=== PATIENT | male | born 1945 | race Caucasian/White ===

== ENCOUNTER 2018-12-11 13:28 | Emergency (ER) | payer MEDICARE, BC ==
--- NOTE | 2018-12-11 13:44 | UC ---
Lower Extremity/Ankle HPI - HPI Summary HPI Summary: 73 yo male presents with LEFT ankle injury. He tells me that about 5 days ago he was walking his dog and the leash wrapped around his ankle and pt fell. Since that time has been having left ankle pain and swelling. Has been using crutches and using RICE therapy for the last 5 days with little relief. Denies numbness or tingling. - History of Current Complaint Stated Complaint: ANKLE INJURY Time Seen by Provider: 12/11/18 13:33 Hx Obtained From: Patient Onset/Duration: Sudden Onset Severity Initially: Moderate Severity Currently: Moderate Pain Intensity: 6 Pain Scale Used: 0-10 Numeric Aggravating Factor(s): Standing, Ambulation Alleviating Factor(s): Rest, Elevation Able to Bear Weight: Yes - Allergies/Home Medications Allergies/Adverse Reactions: Allergies Allergy/AdvReac Type Severity Reaction Status Date / Time azathioprine Allergy Unknown Verified 12/11/18 13:47 Reaction Details citalopram [From Celexa] Allergy Unknown Verified 12/11/18 13:47 Reaction Details methotrexate Allergy Rash Verified 12/11/18 13:47 PMH/Surg Hx/FS Hx/Imm Hx - Additional Past Medical History Additional PMH: Chronic pain Endocrine History: Dyslipidemia Cardiovascular History: Cardiac Disease, Hypertension Respiratory History: COPD, Asthma Psychological History: Anxiety, Depression - Surgical History Surgical History: Yes Surgery Procedure, Year, and Place: TRIPLE BYPASS WITH CHEST WIRES-PRAFUL - Family History Known Family History: Positive: Cardiac Disease, Hypertension, Respiratory Disease - Social History Lives: With Family Alcohol Use: Rare Alcohol Amount: "glass of wine sometimes" Substance Use Type: None Smoking Status (MU): Former Smoker When Did the Patient Quit Smoking/Using Tobacco: 1998 - Immunization History Most Recent Influenza Vaccination: 2014 Most Recent Tetanus Shot: unknown Most Recent Pneumonia Vaccination: unknown Review of Systems All Other Systems Reviewed And Are Negative: Yes Constitutional: Positive: Negative Skin: Positive: Negative Respiratory: Positive: Negative Cardiovascular: Positive: Negative Neurovascular: Positive: Negative Musculoskeletal: Positive: Other: - LEFT ankle pain Psychological: Positive: Negative Physical Exam - Summary Physical Exam Summary: GENERAL: NAD. WDWN. No pain distress. SKIN: No rashes, sores, lesions, or open wounds. CHEST: No accessory muscle use. Breathing comfortably and in no distress. CV: Pulses intact PT and DP. Cap refill <2seconds MSK: LEFT ANKLE: Moderate edema at ankle joint. Mild TTP at medial and lateral malleolus. FROM with pain during inversion at medial malleolus. Strength 5/5. Negative talar tilt. No increased laxity. Negative [place] test. NEURO: Alert. Sensations intact and symmetric B/L LEs PSYCH: Age appropriate behavior. Triage Information Reviewed: Yes Vital Signs: Vital Signs: Temp Pulse Resp BP Pulse Ox 97.2 F 97 20 145/91 96 12/11/18 13:54 12/11/18 13:54 12/11/18 13:54 12/11/18 13:54 12/11/18 13:54 Vital Signs Reviewed: Yes Lower Extremity Course/Dx - Course Course Of Treatment: XR: IMPRESSION: SOFT TISSUE SWELLING AND SMALL AVULSION FRACTURE FRAGMENT ARISING FROM THE MEDIAL TALUS. Pt placed in a CAM boot and advised to wear as much as possible and continue using crutches and utilizing RICE therapy for comfort. F/u with Ortho within 1 week. - Differential Dx/Diagnosis Provider Diagnosis: Avulsion fracture of ankle Discharge - Sign-Out/Discharge Documenting (check all that apply): Patient Departure All imaging exams completed and their final reports reviewed: Yes - Discharge Plan Condition: Stable Disposition: HOME Patient Education Materials: Avulsion Fracture (ED) Referrals: Ania Piña MD [Primary Care Provider] - Benito Ross MD [Medical Doctor] - As Soon As Possible Additional Instructions: If you develop a fever, shortness of breath, chest pain, new or worsening symptoms - please call your PCP or go to the ED immediately. Your blood pressure was high at todays visit. Please see your primary provider within 4 weeks for recheck and re-evaluation. 1) Rest, Ice, and elevate your ankle intermittently throughout the day to reduce pain 2) Use the crutches as needed for support and pain relief. Use the walking boot as much as possible. 3) Please call Orthopedics at the number below to schedule a follow up appointment within 1 week for further evaluation of your ankle. - Billing Disposition and Condition Condition: STABLE Disposition: Home
[2018-12-11 14:03] VITALS: BP 145/91
== END 2018-12-11 14:25 | disposition home or self-care (01) ==
LOC: UCEAST 13:28
DX: S92.155A Nondisplaced avulsion fracture (chip fracture) of left talus, initial encounter for closed fracture (principal); W18.30XA Fall on same level, unspecified, initial encounter; Y93.K1 Activity, walking an animal; Y92.9 Unspecified place or not applicable; G89.29 Other chronic pain; E78.5 Hyperlipidemia, unspecified; I11.9 Hypertensive heart disease without heart failure; J44.9 Chronic obstructive pulmonary disease, unspecified; F41.9 Anxiety disorder, unspecified; F32.9 Major depressive disorder, single episode, unspecified; Z95.1 Presence of aortocoronary bypass graft; Z88.8 Allergy status to other drugs, medicaments and biological substances; Z87.891 Personal history of nicotine dependence
CPT/HCPCS: 99212; G0463

== ENCOUNTER 2019-04-13 10:30 | Emergency (ER) | payer MEDICARE, BC ==
--- NOTE | 2019-04-13 13:38 | ED ---
Back Pain - HPI Summary HPI Summary: The patient is a 73 y/o M presenting to [facility] with a chief complaint of worsening low back pain beginning after lying on side during a colonoscopy 3 weeks ago. He reports that he's had chronic back pain for 30 years with intermittent episodes of severe pain. However, he had a colonoscopy a few weeks ago where he had to lay on his side, and when he woke up, he had severe low back pain without pain before the procedure. He is now c/o difficulty ambulating secondary to the pain. He has spoke with Dr. Piña, his PCP, over the last few days concerning the pain. No new urinary retention, constipation, or bladder or bowel incontinence. Pain is currently rated 7/10 in severity. 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 Former smoker, rare EtOH, no substance use. Medications reviewed. Allergies noted. - History of Current Complaint Chief Complaint: EDBackInjuryPain Stated Complaint: BACK PAIN PER PT Time Seen by Provider: 04/13/19 13:22 Hx Obtained From: Patient Onset/Duration: Lasting Days, Still Present Onset/Duration: Still Present Back Pain Location: Is Discrete @ - low back Severity Initially: Mild Severity Currently: Moderate Pain Intensity: 7 Pain Scale Used: 0-10 Numeric Character: Sharp Aggravating Symptom(s): Movement, Walking Alleviating Symptom(s): Nothing Associated Signs And Symptoms: Positive: Other - Positive: difficulty ambulating secondary to pain. Negative: urinary retention, constipation.. Negative: Bladder Incontinence, Bowel Incontinence - Allergies/Home Medications Allergies/Adverse Reactions: Allergies Allergy/AdvReac Type Severity Reaction Status Date / Time azathioprine Allergy Unknown Verified 03/28/19 14:39 Reaction Details citalopram [From Celexa] Allergy Unknown Verified 03/28/19 14:39 Reaction Details methotrexate Allergy Rash Verified 03/28/19 14:39 LAURE Inhibitors AdvReac Coughing Verified 03/28/19 14:39 celecoxib [From Celebrex] AdvReac GI Upset Verified 03/28/19 14:39 PMH/Surg Hx/FS Hx/Imm Hx Endocrine/Hematology History: Reports: Hx Diabetes - borderline Cardiovascular History: Reports: Hx Angina, Hx Coronary Artery Disease - 3 VESSEL BYPASS HAD TO RETURN TO OR, Hx Hypercholesterolemia, Hx Hypertension, Hx Myocardial Infarction, Hx Rheumatic Fever - A CHILD, Other Cardiovascular Problems/Disorders - HEART STOPPED DURING SURGERY AND HAD CARDIAC MUSCLE LOSS Denies: Hx Pacemaker/ICD Respiratory History: Reports: Hx Sleep Apnea - USES BI PAP Denies: Hx Asthma, Hx Chronic Obstructive Pulmonary Disease (COPD) GI History: Reports: Other GI Disorders - PUS AN AND COPIUS BLOOD FROM RECTUM R/ T ANAL FISSURE Musculoskeletal History: Reports: Hx Arthritis - osteo and rheumatoid, Hx Back Problems, Hx Orthopedic Injury - to lumbar spine in youth, Other Musculoskeletal History - cervical spondylosis, spinal stenosis Sensory History: Reports: Hx Contacts or Glasses Denies: Hx Hearing Aid Opthamlomology History: Reports: Hx Contacts or Glasses Neurological History: Reports: Hx Nerve Disease - NEUROPATHY, Other Neuro Impairments/Disorders - FOOT DROP PT. STATES HE FALLS FREQUENTLY Psychiatric History: Reports: Hx Anxiety, Hx Depression Denies: Hx Panic Disorder - Surgical History Surgical History: Yes Surgery Procedure, Year, and Place: TRIPLE BYPASS WITH CHEST WIRES-PRAFUL Hx Anesthesia Reactions: No Infectious Disease History: No Infectious Disease History: Denies: Traveled Outside the [place] in Last 30 Days - Family History Known Family History: Positive: Cardiac Disease, Hypertension, Respiratory Disease - Social History Alcohol Use: Rare Alcohol Amount: "glass of wine sometimes" Hx Substance Use: No Substance Use Type: Reports: None Hx Tobacco Use: No Smoking Status (MU): Former Smoker Review of Systems Positive: Other - Negative: incontinence of stool Negative: incontinence Positive: Other - severe low back pain worst on right Neurological: Other - difficulty ambulating secondary to pain Negative: Numbness - between penis and buttock All Other Systems Reviewed And Are Negative: Yes Physical Exam - Summary Physical Exam Summary: Constitutional: Well-developed, Well-nourished, Alert. (-) Distressed Skin: Warm, Dry HENT: Normocephalic; Atraumatic Eyes: Conjunctiva normal Neck: Musculoskeletal ROM normal neck. (-) JVD, (-) Stridor, (-) Tracheal deviation Cardio: Rhythm regular, rate normal, Heart sounds normal; Intact distal pulses; The pedal pulses are 2+ and symmetric. Radial pulses are 2+ and symmetric. (-) Murmur Pulmonary/Chest wall: Effort normal. (-) Respiratory distress, (-) Wheezes, (-) Rales Abd: Soft. (-) Tenderness, (-) Distension, (-) Guarding, (-) Rebound Musculoskeletal: Right lateral lumbar tenderness, able to sit up, able to raise legs with some weakness in the right leg, (-) Edema Lymph: (-) Cervical adenopathy Neuro: Alert, Oriented x3 Psych: Mood and affect Normal Triage Information Reviewed: Yes Vital Signs On Initial Exam: Initial Vitals Temp Pulse Resp BP Pulse Ox 97.8 F 75 18 127/82 95 04/13/19 10:33 04/13/19 10:33 04/13/19 10:33 04/13/19 10:33 04/13/19 10:33 Vital Signs Reviewed: Yes Diagnostics - Vital Signs Vital Signs Temp Pulse Resp BP Pulse Ox 04/13/19 10:33 97.8 F 75 18 127/82 95 - Laboratory Lab Statement: Any lab studies that have been ordered have been reviewed, and results considered in the medical decision making process. - Radiology Lumbar Spine MRI Radiology Interpretation Completed By: Radiologist Summary of Radiographic Findings: 1. Similar varying degrees of multilevel spondylosis which results in up to moderate spinal canal stenosis at L2-L3. There is mild to moderate multilevel neural foraminal stenosis as above. 2. Multilevel disc protrusions and extrusions (most of which have partially resorbed). The left paracentral disc extrusion at L5-S1 contacts the descending left S1 nerve root. 3. Modic type I degenerative endplate changes at L2-L3 are potential source of focal back pain. ED physician has reviewed this radiology report. Re-Evaluation - Re-Evaluation First Eval Re-Evaluation Time: 15:20 Comment: We discussed Dr. Piña's recommendation for MRI. Second Eval Re-Evaluation Time: 16:54 Comment: We discussed MRI results and plan for discharge. Back Pain Course/Dx - Course Course Of Treatment: Patient is here with lower back pain. Patient's had chronic lower back pain for the past 30 years. Patient's back pain became exacerbated by his colonoscopy. He was given a dose of IV morphine and steroids. Patient had an MRI performed which showed no change from baseline. Patient was offered admission for pain control but declined. - Diagnoses Provider Diagnoses: Chronic low back pain - Provider Notifications Discussed Care Of Patient With: Ania Piña - family medicine Time Discussed With Above Provider: 15:15 Instructed by Provider To: Other - Dr. Piña recommends MRI secondary to the patient's inability to walk due to the severity of the back pain. Discharge ED - Sign-Out/Discharge Documenting (check all that apply): Patient Departure - Patient will be discharged home. Patient Received Moderate/Deep Sedation with Procedure: No - Discharge Plan Condition: Stable Disposition: HOME Prescriptions: Cyclobenzaprine TAB* [Flexeril 10 MG TAB*] 10 mg PO BID PRN #20 tab PRN Reason: muscle spasm Patient Education Materials: Chronic Back Pain (DC) Referrals: Cheryl Kent MD [Medical Doctor] - 2 Days Ania Piña MD [Primary Care Provider] - 1 Day Additional Instructions: Follow up with Dr. Kent from neurosurgery to consult for your back pain. Take your new prescribed pain medications, but do not take them while taking the ones you are already prescribed. Follow up with your primary care provider in the morning. Return to the emergency department for any new or worsening symptoms. - Billing Disposition and Condition Condition: STABLE Disposition: Home - Attestation Statements Document Initiated by Alie: Yes Documenting Scribe: Renetta Lainez Provider For Whom Alie is Documenting (Include Credential): Dr. Perfecto Monaco MD Scribe Attestation: Renetta Cruz scribed for Dr. Perfecto Monaco MD on 04/15/19 at 1434. Scribe Documentation Reviewed: Yes Provider Attestation: The documentation as recorded by the Renetta de guzman accurately reflects the service I personally performed and the decisions made by me, Dr. Perfecto Monaco MD Status of Scribe Document: Viewed
[2019-04-13] MEDS: methylPREDNISolone 125 MG* 2 ML VIAL IM ONE (14:38)
[2019-04-13] MEDS: Morphine 4 MG/ML VIAL (1 ml) 4 MG/ML VIAL IM ONE (14:38)
[2019-04-13 17:16] VITALS: BP 141/69
== END 2019-04-13 17:10 | disposition home or self-care (01) ==
LOC: ED 10:30
DX: M54.5 Low back pain (principal); G89.29 Other chronic pain; M47.896 Other spondylosis, lumbar region; E11.9 Type 2 diabetes mellitus without complications; I25.119 Atherosclerotic heart disease of native coronary artery with unspecified angina pectoris; E78.00 Pure hypercholesterolemia, unspecified; I10 Essential (primary) hypertension; I25.2 Old myocardial infarction; Z87.891 Personal history of nicotine dependence; Z79.82 Long term (current) use of aspirin; Z79.84 Long term (current) use of oral hypoglycemic drugs; Z79.899 Other long term (current) drug therapy; Z88.6 Allergy status to analgesic agent; Z88.1 Allergy status to other antibiotic agents; Z88.8 Allergy status to other drugs, medicaments and biological substances
CPT/HCPCS: 72148; 96372; 99282; J2270; J2930

== ENCOUNTER 2023-02-09 07:25 | Observation (INO) ==
[2023-02-09] MEDS ORDERED: NS 0.9% 1000 ml BAG 1,000 ML IV ONE ×2 (07:47→12:41)
[2023-02-09 08:51] LABS: ABS Lymphocytes 0.4 10^3/uL (1.0-4.8); ABS Monocytes 1.3 10^3/uL (0.0-1.1); ABS Nucleated RBC 0.01 10^3/ul; Eosinophil % 0.2 %; Hematocrit 43.5 % (38-53); Hemoglobin 14.5 g/dL (13.2-16.3); Lymphocyte % 3.1 %; Mean Corpuscular Hemoglobin 27.4 pg (27-33); Mean Corpuscular Hgb Conc 33.2 g/dL (31-36); Mean Corpuscular Volume 82.6 fL (80-97); Mean Platelet Volume 8.3 fL (7.5-11.2); Nucleated Red Blood Cells % 0.1 /100 WBC (0.0-0.4); Platelet Count 212 10^3/uL (150-450); Red Blood Count 5.27 10^6/uL (4.06-5.63); Red Cell Distribution Width 16.4 % (12-17); White Blood Count 11.7 10^3/uL (3.6-10.2)
[2023-02-09 09:03] LABS: Albumin 3.9 g/dL (3.2-5.2); Albumin/Globulin Ratio 1.2 (1-3); C Reactive Protein 61.56 mg/L (<8.01); Calcium 9.5 mg/dL (8.6-10.3); Creatinine, Serum 1.61 mg/dL (0.67-1.17); Globulin 3.2 g/dL (2-4); Magnesium 1.9 mg/dL (1.9-2.7); Phosphorus 3.1 mg/dL (2.5-5.0); Potassium 3.5 mmol/L (3.5-5.0); Total Bilirubin 0.4 mg/dL (0.2-1.0); Total Protein 7.1 g/dL (6.4-8.9); eGFR CKD-EPI 44.3 (>60)
[2023-02-09] MEDS ORDERED: cefTRIAXone 1 gm/50 mL D5W 1 GM/50 ML BAG IV ONE (10:15)
[2023-02-09] MEDS ORDERED: Azithromycin 500 mg/250 ml NS 500 MG/250 ML BAG IVPB ONE (10:16)
[2023-02-09 10:17] LABS: High Sensitivity Troponin 1 Hr 19 pg/mL (<20)
[2023-02-09] MEDS ORDERED: methylPREDNISolone SOD SUCC 125 mg 2 ML VIAL IV ONE (10:18)
[2023-02-09] MEDS ORDERED: Albuterol/Ipratropium NEB.SOL (2.5/0.5 MG) 3 ML NEB.SOLN INH ONE (10:18)
[2023-02-09 12:05] LABS: Urine Appearance Clear; Urine Bilirubin Negative (Negative); Urine Blood Negative (Negative); Urine Color Yellow; Urine Glucose 3+(>=500 mg/dL) (Negative); Urine Ketones Trace (Negative); Urine Nitrite Negative (Negative); Urine Protein 1+(30 mg/dL) (Negative); Urine Specific Gravity 1.018 (1.002-1.030); Urine Urobilinogen Negative (Negative)
[2023-02-09 12:16] LABS: Urine Bacteria Absent (Absent); Urine Red Blood Cell Trace(0-2/hpf) (Absent); Urine White Blood Cell Trace(0-5/hpf) (Absent)
[2023-02-09] MEDS ORDERED: Albuterol/Ipratropium NEB.SOL (2.5/0.5 MG) 3 ML NEB.SOLN INH PRN (13:09)
[2023-02-09] MEDS ORDERED: Enoxaparin 30 MG/0.3 ML SYR SUBCUT SCH (14:00)
[2023-02-09] MEDS ORDERED: NIRMATRELVIR/RITONAVIR 1 PAK eGFR 30-60 (see instructions) PO ONE ×2 (18:54→21:00)
[2023-02-09] MEDS ORDERED: HYDROcodone/Acetamin 10/325 TAB (NF) PO PRN (19:26)
[2023-02-09] MEDS ORDERED: Ondansetron 4 mg VIAL 2 MG/ML 2 ml VIAL IV PRN (19:49)
[2023-02-09] MEDS ORDERED: fentaNYL PATCH 100 MCG/HR 1 PATCH TRANSDERM SCH (20:00)
[2023-02-10 05:44] LABS: ABS Lymphocytes 0.6 10^3/uL (1.0-4.8); ABS Monocytes 0.8 10^3/uL (0.0-1.1); ABS Neutrophils 5.7 10^3/uL (1.5-7.6); ABS Nucleated RBC 0.01 10^3/ul; Hematocrit 36.3 % (38-53); Lymphocyte % 8.5 %; Mean Corpuscular Hemoglobin 27.5 pg (27-33); Mean Corpuscular Hgb Conc 33.2 g/dL (31-36); Mean Platelet Volume 7.8 fL (7.5-11.2); Nucleated Red Blood Cells % 0.1 /100 WBC (0.0-0.4); Platelet Count 162 10^3/uL (150-450); Red Blood Count 4.37 10^6/uL (4.06-5.63); Red Cell Distribution Width 16.5 % (12-17); White Blood Count 7.1 10^3/uL (3.6-10.2)
[2023-02-10 05:58] LABS: Calcium 7.6 mg/dL (8.6-10.3); Creatinine, Serum 1.36 mg/dL (0.67-1.17); Magnesium 1.9 mg/dL (1.9-2.7); Potassium 3.4 mmol/L (3.5-5.0); eGFR CKD-EPI 54.3 (>60)
[2023-02-10] MEDS ORDERED: fentaNYL Patch Check Q Shift NOTE FOLLOW UP SCH (07:00)
[2023-02-10] MEDS ORDERED: Potassium Chlor 20 meq TAB.ER PO ONE ×2 (07:28→12:00)
[2023-02-10] MEDS ORDERED: Magnesium Sulfate IV 1GM/100ML 1 GM/100 ML BAG IV ONE (07:29)
[2023-02-10] MEDS ORDERED: Remdesivir 100 mg Vial 200 MG in NS 0.9% 250 ml 210 ML IV ONE (07:44)
[2023-02-10 08:48] LABS: Albumin 3.2 g/dL (3.2-5.2); Albumin/Globulin Ratio 1.2 (1-3); Calcium 7.9 mg/dL (8.6-10.3); Creatinine, Serum 1.28 mg/dL (0.67-1.17); Globulin 2.6 g/dL (2-4); Potassium 4.4 mmol/L (3.5-5.0); Total Bilirubin 0.3 mg/dL (0.2-1.0); Total Protein 5.8 g/dL (6.4-8.9); eGFR CKD-EPI 58.4 (>60)
[2023-02-10 08:49] LABS: INR 1.1 (0.88-1.18)
[2023-02-10] MEDS ORDERED: CYANOCOBALAMIN 5000 MCG SL SCH (09:00)
[2023-02-10] MEDS ORDERED: Aspirin EC 81 mg TAB.EC (enteric coated) PO SCH (09:00)
[2023-02-10] MEDS ORDERED: cefTRIAXone 1 gm/50 mL D5W 1 GM/50 ML BAG IV SCH (09:00)
[2023-02-10] MEDS ORDERED: Polyethylene Glycol 3350 17 GM PACKET PO PRN (13:40)
[2023-02-10] MEDS ORDERED: Senna TAB 8.6 mg TAB PO PRN (13:40)
[2023-02-10 14:39] VITALS: BP 126/74
[2023-02-10] MEDS ORDERED: Enoxaparin 30 MG/0.3 ML SYR SUBCUT SCH (20:00)
[2023-02-10] MEDS ORDERED: Magnesium Hydroxide LIQ 30 ML UDC PO SCH (21:00)
[2023-02-11] MEDS ORDERED: Remdesivir 100 mg Vial 100 MG in NS 0.9% 250 ml 230 ML IV SCH (09:00)
== END 2023-02-10 17:05 | disposition home or self-care (01) ==
LOC: ED 07:25 → EDHOLD 07:25 → MED 15:47
PROVIDERS: ADMIT Internal Medicine; ATTEND Internal Medicine

== ENCOUNTER 2023-10-20 16:27 | Inpatient (IN) ==
[2023-10-20 17:38] LABS: ABS Basophils 0.1 10^3/uL (0.0-0.1); ABS Eosinophils 0.1 10^3/uL (0.0-0.5); ABS Lymphocytes 1.1 10^3/uL (1.0-4.8); ABS Monocytes 0.8 10^3/uL (0.0-1.1); ABS Neutrophils 13.7 10^3/uL (1.5-7.6); ABS Nucleated RBC 0.01 10^3/ul; Eosinophil % 0.6 %; Hematocrit 41.3 % (38-53); Hemoglobin 13.4 g/dL (13.2-16.3); Mean Corpuscular Hemoglobin 27.8 pg (27-33); Mean Corpuscular Hgb Conc 32.5 g/dL (31-36); Mean Corpuscular Volume 85.4 fL (80-97); Mean Platelet Volume 8.1 fL (7.5-11.2); Nucleated Red Blood Cells % 0.1 %/100WBC (0.0-0.8); Platelet Count 284 10^3/uL (150-450); Red Blood Count 4.83 10^6/uL (4.06-5.63); Red Cell Distribution Width 15.3 % (12-17); White Blood Count 15.9 10^3/uL (3.6-10.2)
[2023-10-20 18:01] LABS: Albumin 3.9 g/dL (3.2-5.2); Albumin/Globulin Ratio 1.3 (1-3); C Reactive Protein 49.47 mg/L (<8.01); Calcium 9.4 mg/dL (8.6-10.3); Creatinine, Serum 1.25 mg/dL (0.67-1.17); Globulin 2.9 g/dL (2-4); Potassium 4.7 mmol/L (3.5-5.0); Total Bilirubin 0.4 mg/dL (0.2-1.0); Total Protein 6.8 g/dL (6.4-8.9); eGFR CKD-EPI 59.7 (>60)
[2023-10-20] MEDS: Dexamethasone IV 4 MG/ML VIAL 1 ml VIAL IV SLOW PU ONE (18:53)
[2023-10-20] MEDS: cefTRIAXone 1 gm/50 mL D5W 1 GM/50 ML BAG IV ONE (19:29)
[2023-10-20] MEDS ORDERED: HYDROcodone/Acetamin 10/325 TAB (NF) PO PRN (20:16)
[2023-10-20] MEDS: Azithromycin 500 mg/250 ml NS 500 MG/250 ML BAG IVPB ONE (20:26)
[2023-10-20] MEDS ORDERED: Dextrose 50% Syringe 50 ml 25 GM/50 ML SYRINGE IV PUSH PRN (21:13)
[2023-10-20] MEDS ORDERED: Albuterol HFA INHALER 8 gm MDI INH PRN (21:31)
[2023-10-20] MEDS ORDERED: Albuterol/Ipratropium NEB.SOL (2.5/0.5 MG) 3 ML NEB.SOLN INH PRN (21:32)
[2023-10-20] MEDS: Lactated Ringers 1000 ml BAG 1,000 ML IV SCH (22:53)
[2023-10-21] MEDS: Enoxaparin 40 MG/0.4 ML SYR SUBCUT SCH (00:19)
[2023-10-21 05:47] LABS: ABS Basophils 0.1 10^3/uL (0.0-0.1); ABS Lymphocytes 0.8 10^3/uL (1.0-4.8); ABS Monocytes 0.3 10^3/uL (0.0-1.1); ABS Neutrophils 8.6 10^3/uL (1.5-7.6); Eosinophil % 0.1 %; Hemoglobin 11.8 g/dL (13.2-16.3); Mean Corpuscular Hemoglobin 27.6 pg (27-33); Mean Corpuscular Hgb Conc 32.9 g/dL (31-36); Mean Corpuscular Volume 83.8 fL (80-97); Platelet Count 247 10^3/uL (150-450); Red Blood Count 4.29 10^6/uL (4.06-5.63); Red Cell Distribution Width 15.1 % (12-17); White Blood Count 9.8 10^3/uL (3.6-10.2)
[2023-10-21 06:22] LABS: Calcium 8.3 mg/dL (8.6-10.3); Creatinine, Serum 1.09 mg/dL (0.67-1.17); Potassium 3.9 mmol/L (3.5-5.0); eGFR CKD-EPI 70.3 (>60)
[2023-10-21] MEDS: fentaNYL Patch Check Q Shift NOTE FOLLOW UP SCH (07:45)
[2023-10-21] MEDS: fentaNYL PATCH 100 MCG/HR 1 PATCH TRANSDERM SCH (07:45)
[2023-10-21] MEDS ORDERED: CMCS: Epleronone 25 mg TAB (NF) PO SCH (09:00)
[2023-10-21] MEDS: CMCS: Desvenlafaxine 50 mg TAB ER (NF) PO SCH (09:24)
[2023-10-21] MEDS: Aspirin EC 81 mg TAB.EC (enteric coated) PO SCH (09:24)
[2023-10-21] MEDS: HYDROcodone/Acetamin 10/325 TAB (NF) PO PRN (10:10)
[2023-10-21] MEDS: cefTRIAXone 1 gm/50 mL D5W 1 GM/50 ML BAG IV SCH (20:11)
[2023-10-21] MEDS ORDERED: Azithromycin 500 mg/250 ml NS 500 MG/250 ML BAG IVPB SCH (21:00)
[2023-10-21] MEDS: DOXYcycline 100 MG in NS 0.9% 250 ml 250 ML IVPB SCH (22:08)
[2023-10-21] MEDS: Insulin GLARGINE 100 un/ml 10 ml VIAL SUBCUT SCH (23:31)
[2023-10-22 06:36] LABS: ABS Lymphocytes 1.8 10^3/uL (1.0-4.8); ABS Monocytes 0.7 10^3/uL (0.0-1.1); ABS Neutrophils 6.6 10^3/uL (1.5-7.6); ABS Nucleated RBC 0.01 10^3/ul; Eosinophil % 0.5 %; Hematocrit 34.5 % (38-53); Hemoglobin 11.3 g/dL (13.2-16.3); Lymphocyte % 19.6 %; Mean Corpuscular Hemoglobin 27.9 pg (27-33); Mean Corpuscular Hgb Conc 32.8 g/dL (31-36); Mean Corpuscular Volume 85.2 fL (80-97); Mean Platelet Volume 7.9 fL (7.5-11.2); Nucleated Red Blood Cells % 0.1 %/100WBC (0.0-0.8); Platelet Count 227 10^3/uL (150-450); Red Blood Count 4.05 10^6/uL (4.06-5.63); Red Cell Distribution Width 14.8 % (12-17); White Blood Count 9.2 10^3/uL (3.6-10.2)
[2023-10-22 06:53] LABS: Calcium 8.6 mg/dL (8.6-10.3); Creatinine, Serum 1.18 mg/dL (0.67-1.17); Phosphorus 3.1 mg/dL (2.5-5.0); Potassium 4.1 mmol/L (3.5-5.0)
[2023-10-23] MEDS: fentaNYL PATCH 100 MCG/HR 1 PATCH TRANSDERM SCH (17:15)
[2023-10-25 06:24] LABS: ABS Basophils 0.1 10^3/uL (0.0-0.1); ABS Lymphocytes 1.7 10^3/uL (1.0-4.8); ABS Monocytes 0.8 10^3/uL (0.0-1.1); ABS Neutrophils 7.8 10^3/uL (1.5-7.6); Eosinophil % 0.3 %; Hematocrit 35.9 % (38-53); Hemoglobin 11.9 g/dL (13.2-16.3); Lymphocyte % 16.2 %; Mean Corpuscular Hemoglobin 27.7 pg (27-33); Mean Corpuscular Hgb Conc 33.1 g/dL (31-36); Mean Corpuscular Volume 83.7 fL (80-97); Mean Platelet Volume 8.2 fL (7.5-11.2); Platelet Count 226 10^3/uL (150-450); Red Blood Count 4.29 10^6/uL (4.06-5.63); White Blood Count 10.4 10^3/uL (3.6-10.2)
[2023-10-25 06:57] LABS: Calcium 8.1 mg/dL (8.6-10.3); Creatinine, Serum 1.02 mg/dL (0.67-1.17); Magnesium 2.2 mg/dL (1.9-2.7); Phosphorus 2.7 mg/dL (2.5-5.0); Potassium 3.7 mmol/L (3.5-5.0); eGFR CKD-EPI 76.2 (>60)
[2023-10-25] MEDS ORDERED: Senna TAB 8.6 mg TAB PO PRN (12:29)
[2023-10-26 06:03] LABS: ABS Eosinophils 0.1 10^3/uL (0.0-0.5); ABS Monocytes 0.6 10^3/uL (0.0-1.1); ABS Neutrophils 6.9 10^3/uL (1.5-7.6); ABS Nucleated RBC 0.01 10^3/ul; Eosinophil % 0.6 %; Hematocrit 33.9 % (38-53); Hemoglobin 11.1 g/dL (13.2-16.3); Lymphocyte % 20.7 %; Mean Corpuscular Hemoglobin 27.8 pg (27-33); Mean Corpuscular Hgb Conc 32.7 g/dL (31-36); Mean Corpuscular Volume 85.1 fL (80-97); Mean Platelet Volume 8.3 fL (7.5-11.2); Nucleated Red Blood Cells % 0.1 %/100WBC (0.0-0.8); Platelet Count 218 10^3/uL (150-450); Red Blood Count 3.99 10^6/uL (4.06-5.63); White Blood Count 9.6 10^3/uL (3.6-10.2)
[2023-10-26 06:17] LABS: Calcium 7.6 mg/dL (8.6-10.3); Creatinine, Serum 1.2 mg/dL (0.67-1.17); Potassium 3.9 mmol/L (3.5-5.0); eGFR CKD-EPI 62.7 (>60)
[2023-10-26] MEDS ORDERED: EPLERENONE 50 MG PO SCH (09:00)
[2023-10-26] MEDS: CMCS: Epleronone 25 mg TAB (NF) PO SCH (10:44)
[2023-10-26] MEDS: METHYLNALTREXONE 150 MG PO SCH (10:53)
[2023-10-27] MEDS: fentaNYL PATCH 100 MCG/HR 1 PATCH TRANSDERM SCH (15:58)
[2023-10-29 07:00] LABS: Calcium 8.6 mg/dL (8.6-10.3); Creatinine, Serum 1.2 mg/dL (0.67-1.17); Potassium 4.3 mmol/L (3.5-5.0); eGFR CKD-EPI 62.7 (>60)
[2023-10-30] MEDS: fentaNYL PATCH 100 MCG/HR 1 PATCH TRANSDERM SCH (16:42)
[2023-11-01] MEDS: Polyethylene Glycol 3350 17 GM PACKET PO PRN (20:31)
[2023-11-02 09:21] VITALS: BP 140/70
[2023-11-02] MEDS: CMC:Mycophenolate 180 mg TAB (NF) PO SCH (09:57)
== END 2023-11-02 13:00 | DRG 177 ==
LOC: ED 16:27 → INTOOBSV 20:10 → EDHOLD 20:10 → SUATTDRO 20:10 → MED 10-21 03:07 → SUATTDRO 10-22 12:00
PROVIDERS: ADMIT Hospitalist; ATTEND Internal Medicine

== ENCOUNTER 2023-11-11 16:33 | Inpatient (IN) ==
[2023-11-11 17:35] LABS: ABS Basophils 0.1 10^3/uL (0.0-0.1); ABS Eosinophils 0.2 10^3/uL (0.0-0.5); ABS Lymphocytes 1.5 10^3/uL (1.0-4.8); ABS Monocytes 0.9 10^3/uL (0.0-1.1); ABS Neutrophils 9.4 10^3/uL (1.5-7.6); ABS Nucleated RBC 0.01 10^3/ul; Eosinophil % 1.8 %; Hematocrit 39.1 % (38-53); Hemoglobin 12.7 g/dL (13.2-16.3); Lymphocyte % 12.3 %; Mean Corpuscular Hemoglobin 27.7 pg (27-33); Mean Corpuscular Hgb Conc 32.4 g/dL (31-36); Mean Corpuscular Volume 85.5 fL (80-97); Mean Platelet Volume 8.6 fL (7.5-11.2); Nucleated Red Blood Cells % 0.1 %/100WBC (0.0-0.8); Platelet Count 185 10^3/uL (150-450); Red Blood Count 4.57 10^6/uL (4.06-5.63); Red Cell Distribution Width 14.9 % (12-17)
[2023-11-11] MEDS: Cefepime 2 GM in Dextrose 2 GM/50 ML BAG IV ONE (17:44)
[2023-11-11 17:47] LABS: Venous Bicarbonate HCO3 30.9 mmol/L (24-28)
[2023-11-11 17:47] LABS: PCO2 Arterial 60 mmHg (35-45); PO2 Arterial 86 mmHg (80-100)
[2023-11-11 17:54] LABS: INR 1.02 (0.83-1.13)
[2023-11-11 17:59] LABS: Urine Appearance Clear; Urine Bilirubin Negative (Negative); Urine Blood Negative (Negative); Urine Color Light-Yellow; Urine Glucose 4+ (>=1000 mg/dL) (Negative); Urine Ketones Negative (Negative); Urine Nitrite Negative (Negative); Urine Protein Negative (Negative); Urine Urobilinogen Negative (Negative); Urine pH 5.5 (5.0-8.0)
[2023-11-11] MEDS ORDERED: Vancomycin 1,000 MG in NS 0.9% 250 ml 250 ML IVPB SCH (18:00)
[2023-11-11 18:02] LABS: High Sens Troponin Baseline 8 pg/mL (<20)
[2023-11-11 18:20] LABS: ALT 32 U/L (7-52); Acetaminophen < 15 mcg/mL; Albumin 3.8 g/dL (3.2-5.2); Albumin/Globulin Ratio 1.2 (1-3); Alcohol, S < 13 mg/dL (<13); Alkaline Phosphatase 84 U/L (35-149); Anion Gap 2 mmol/L (2-16); Blood Urea Nitrogen 28 mg/dL (6-24); CO2 Carbon Dioxide 38 mmol/L (22-32); Calcium 8.4 mg/dL (8.6-10.3); Chloride 96 mmol/L (101-111); Creatinine, Serum 1.38 mg/dL (0.67-1.17); Globulin 3.1 g/dL (2-4); Glucose 154 mg/dL (70-100); Salicylate < 2.50 mg/dL (<30); Sodium 136 mmol/L (135-145); Total Bilirubin 0.6 mg/dL (0.2-1.0); Total Protein 6.9 g/dL (6.4-8.9)
[2023-11-11 18:24] LABS: Urine Benzodiazepine Screen Presumptive Positive (None Detect); Urine Cannabinoids Screen None Detected (None Detect); Urine Opiates Screen Presumptive Positive (None Detect)
[2023-11-11 18:26] LABS: TSH Ultra Thyroid Stim Horm 2.77 mcIU/mL (0.34-5.60)
[2023-11-11 18:57] LABS: High Sensitivity Troponin 1 Hr 7 pg/mL (<20)
[2023-11-11] MEDS: Vancomycin 1,500 MG in NS 0.9% 250 ml 250 ML IVPB SCH (20:47)
[2023-11-11] MEDS: Phenylephrine DRIP 0.2 MG/ML in NS 0.9% 250 ML (PHA mix) IV SCH (22:49)
[2023-11-12 07:16] LABS: ABS Eosinophils 0.2 10^3/uL (0.0-0.5); ABS Lymphocytes 1.2 10^3/uL (1.0-4.8); ABS Monocytes 0.6 10^3/uL (0.0-1.1); ABS Neutrophils 7.7 10^3/uL (1.5-7.6); Eosinophil % 2.1 %; Hematocrit 35.9 % (38-53); Hemoglobin 11.8 g/dL (13.2-16.3); Lymphocyte % 12.1 %; Mean Corpuscular Hgb Conc 32.7 g/dL (31-36); Mean Corpuscular Volume 85.5 fL (80-97); Mean Platelet Volume 8.5 fL (7.5-11.2); Platelet Count 165 10^3/uL (150-450); Red Cell Distribution Width 14.9 % (12-17); White Blood Count 9.7 10^3/uL (3.6-10.2)
[2023-11-12 07:41] LABS: Calcium 8.4 mg/dL (8.6-10.3); Creatinine, Serum 1.25 mg/dL (0.67-1.17); Magnesium 2.2 mg/dL (1.9-2.7); Potassium 3.3 mmol/L (3.5-5.0); eGFR CKD-EPI 59.7 (>60)
[2023-11-12] MEDS: Enoxaparin 40 MG/0.4 ML SYR SUBCUT SCH (10:43)
[2023-11-12] MEDS: KCL 20 MEQ/100 ML IVPREMIX 20 MEQ/100 ML BAG IV SCH (10:46)
[2023-11-12] MEDS: Polyethylene Glycol 3350 17 GM PACKET PO PRN (12:46)
[2023-11-12] MEDS: HYDROcodone/Acetamin 10/325 TAB (NF) PO PRN (12:47)
[2023-11-12] MEDS: Aspirin EC 81 mg TAB.EC (enteric coated) PO SCH (12:57)
[2023-11-12] MEDS: CMCS: Epleronone 25 mg TAB (NF) PO SCH (13:04)
[2023-11-12] MEDS: MYCOPHENOLATE 180 MG PO SCH (13:05)
[2023-11-12] MEDS: METHYLNALTREXONE 150 MG PO SCH (13:37)
[2023-11-12] MEDS: fentaNYL PATCH 100 MCG/HR 1 PATCH TRANSDERM SCH (13:41)
[2023-11-12] MEDS: Potassium Chlor 20 meq TAB.ER PO ONE (17:14)
[2023-11-12] MEDS: fentaNYL Patch Check Q Shift NOTE FOLLOW UP SCH (22:18)
[2023-11-13] MEDS: CMCS: Desvenlafaxine 50 mg TAB ER (NF) PO SCH (09:48)
[2023-11-13 12:00] LABS: Calcium 8.9 mg/dL (8.6-10.3); Creatinine, Serum 1.08 mg/dL (0.67-1.17); Magnesium 1.9 mg/dL (1.9-2.7); Potassium 3.7 mmol/L (3.5-5.0); eGFR CKD-EPI 71.1 (>60)
[2023-11-13 12:03] LABS: ABS Eosinophils 0.1 10^3/uL (0.0-0.5); ABS Lymphocytes 0.9 10^3/uL (1.0-4.8); ABS Neutrophils 8.7 10^3/uL (1.5-7.6); ABS Nucleated RBC 0.01 10^3/ul; Hemoglobin 11.5 g/dL (13.2-16.3); Lymphocyte % 8.3 %; Mean Corpuscular Hemoglobin 27.9 pg (27-33); Mean Corpuscular Hgb Conc 32.9 g/dL (31-36); Mean Corpuscular Volume 84.8 fL (80-97); Mean Platelet Volume 8.7 fL (7.5-11.2); Nucleated Red Blood Cells % 0.1 %/100WBC (0.0-0.8); Platelet Count 169 10^3/uL (150-450); Red Blood Count 4.13 10^6/uL (4.06-5.63); Red Cell Distribution Width 14.6 % (12-17); White Blood Count 10.7 10^3/uL (3.6-10.2)
[2023-11-13] MEDS: acetaZOLAMIDE IV 500 MG in NS 0.9% 50 ML 50 ML IVPB ONE (16:20)
[2023-11-15 05:50] LABS: ABS Lymphocytes 0.9 10^3/uL (1.0-4.8); ABS Monocytes 0.8 10^3/uL (0.0-1.1); ABS Neutrophils 8.2 10^3/uL (1.5-7.6); ABS Nucleated RBC 0.01 10^3/ul; Eosinophil % 0.1 %; Hemoglobin 11.3 g/dL (13.2-16.3); Lymphocyte % 9.3 %; Mean Corpuscular Hgb Conc 33.3 g/dL (31-36); Mean Corpuscular Volume 84.2 fL (80-97); Mean Platelet Volume 8.7 fL (7.5-11.2); Nucleated Red Blood Cells % 0.1 %/100WBC (0.0-0.8); Platelet Count 208 10^3/uL (150-450); Red Blood Count 4.04 10^6/uL (4.06-5.63); White Blood Count 9.9 10^3/uL (3.6-10.2)
[2023-11-15 06:02] LABS: Calcium 8.9 mg/dL (8.6-10.3); Creatinine, Serum 1.28 mg/dL (0.67-1.17)
[2023-11-16 19:49] LABS: Rapid COVID-19 Molecular Undetected (Undetected)
[2023-11-16] MEDS: Polyethylene Glycol 3350 17 GM PACKET PO SCH (21:51)
[2023-11-16] MEDS: Senna TAB 8.6 mg TAB PO SCH (21:52)
[2023-11-17 14:15] VITALS: BP 149/83
== END 2023-11-17 14:44 | DRG 189 ==
LOC: ED 16:33 → EDHOLD 20:03 → SUATTDRO 20:03 → ICU 11-12 01:08 → SSU 11-12 18:36
PROVIDERS: ADMIT Surgery Surgical Critical Care; ATTEND Internal Medicine

== ENCOUNTER 2024-04-05 14:07 | Inpatient (IN) ==
[2024-04-05 17:50] LABS: ABS Lymphocytes 0.8 10^3/uL (1.0-4.8); ABS Neutrophils 12.4 10^3/uL (1.5-7.6); ABS Nucleated RBC 0.02 10^3/ul; Eosinophil % 0.2 %; Hematocrit 38.5 % (38-53); Hemoglobin 12.1 g/dL (13.2-16.3); Lymphocyte % 5.7 %; Mean Corpuscular Hemoglobin 25.9 pg (27-33); Mean Corpuscular Hgb Conc 31.4 g/dL (31-36); Mean Corpuscular Volume 82.5 fL (80-97); Mean Platelet Volume 7.6 fL (7.5-11.2); Nucleated Red Blood Cells % 0.2 %/100WBC (0.0-0.8); Platelet Count 223 10^3/uL (150-450); Red Blood Count 4.66 10^6/uL (4.06-5.63); White Blood Count 14.3 10^3/uL (3.6-10.2)
[2024-04-05] MEDS: Morphine 4 MG/ML VIAL (1 ml) IV ONE (17:53)
[2024-04-05 17:59] LABS: INR 1.07 (0.85-1.14)
[2024-04-05 18:12] LABS: Albumin 3.9 g/dL (3.2-5.2); Albumin/Globulin Ratio 1.2 (1-3); C Reactive Protein 145.33 mg/L (<8.01); Calcium 8.8 mg/dL (8.6-10.3); Creatinine, Serum 1.23 mg/dL (0.67-1.17); Globulin 3.2 g/dL (2-4); Potassium 3.9 mmol/L (3.5-5.0); Total Bilirubin 0.6 mg/dL (0.2-1.0); Total Protein 7.1 g/dL (6.4-8.9); eGFR CKD-EPI 60.8 (>60)
[2024-04-05 19:24] LABS: High Sensitivity Troponin 1 Hr 10 pg/mL (<20)
[2024-04-05] MEDS ORDERED: cefTRIAXone 2 GM ADDV.VIAL 2 GM in NS 0.9% 100 ml BAG 100 ML IV ONE (19:35)
[2024-04-05 19:54] LABS: Urine Appearance Clear; Urine Bilirubin Negative (Negative); Urine Blood Negative (Negative); Urine Color Light-Yellow; Urine Glucose 4+ (>=1000 mg/dL) (Negative); Urine Ketones Negative (Negative); Urine Nitrite Negative (Negative); Urine Protein Trace (Negative); Urine Urobilinogen Negative (Negative); Urine pH 5.5 (5.0-8.0)
[2024-04-05] MEDS: cefTRIAXone 2 gm/50 mL D5W 2 GM/50 ML BAG IV ONE (20:15)
[2024-04-05] MEDS: DOXYcycline 100 MG in NS 0.9% 250 ml 250 ML IVPB ONE (21:18)
[2024-04-06] MEDS: fentaNYL PATCH 100 MCG/HR 1 PATCH TRANSDERM SCH (02:53)
[2024-04-06] MEDS ORDERED: Dextrose 50% Syringe 50 ml 25 GM/50 ML SYRINGE IV PUSH PRN (02:59)
[2024-04-06] MEDS: TIRZEPATIDE 5 MG/0.5 ML SUBCUT SCH (03:10)
[2024-04-06] MEDS: Enoxaparin 40 MG/0.4 ML SYR SUBCUT SCH (03:11)
[2024-04-06] MEDS: Lactated Ringers 1000 ml BAG 500 ML IV ONE (03:28)
[2024-04-06 06:00] LABS: ABS Eosinophils 0.1 10^3/uL (0.0-0.5); ABS Lymphocytes 0.9 10^3/uL (1.0-4.8); ABS Monocytes 1.2 10^3/uL (0.0-1.1); ABS Neutrophils 10.1 10^3/uL (1.5-7.6); Eosinophil % 0.4 %; Hematocrit 35.2 % (38-53); Hemoglobin 11.4 g/dL (13.2-16.3); Lymphocyte % 7.5 %; Mean Corpuscular Hemoglobin 26.7 pg (27-33); Mean Corpuscular Hgb Conc 32.3 g/dL (31-36); Mean Corpuscular Volume 82.5 fL (80-97); Mean Platelet Volume 7.9 fL (7.5-11.2); Platelet Count 203 10^3/uL (150-450); Red Blood Count 4.27 10^6/uL (4.06-5.63); Red Cell Distribution Width 15.9 % (12-17); White Blood Count 12.3 10^3/uL (3.6-10.2)
[2024-04-06 06:22] LABS: Albumin 3.6 g/dL (3.2-5.2); Albumin/Globulin Ratio 1.3 (1-3); Calcium 8.8 mg/dL (8.6-10.3); Creatinine, Serum 1.17 mg/dL (0.67-1.17); Globulin 2.8 g/dL (2-4); Magnesium 1.9 mg/dL (1.9-2.7); Potassium 3.4 mmol/L (3.5-5.0); Total Bilirubin 0.5 mg/dL (0.2-1.0); Total Protein 6.4 g/dL (6.4-8.9); eGFR CKD-EPI 64.6 (>60)
[2024-04-06] MEDS: Potassium EFFERVES 25 meq TAB PO ONE (07:59)
[2024-04-06] MEDS: Aspirin EC 81 mg TAB.EC (enteric coated) PO SCH (08:01)
[2024-04-06] MEDS: CMCS:Desvenlafaxine 50 mg TAB ER (NF) PO SCH (08:02)
[2024-04-06] MEDS: Nitroglycerin 0.2 mg/hr PATCH (5 mg) TRANSDERM SCH (08:03)
[2024-04-06] MEDS ORDERED: XYLITOL MUCOUS_MEM SCH (09:00)
[2024-04-06] MEDS ORDERED: [UNRECOGNIZED DRUG - OTHER] MUCOUS_MEM SCH (09:00)
[2024-04-06] MEDS ORDERED: Eszopiclone 3 mg TAB (NF) PO SCH (09:00)
[2024-04-06] MEDS: DOXYcycline 100 MG in NS 0.9% 250 ml 250 ML IVPB SCH (09:47)
[2024-04-06] MEDS: fentaNYL Patch Check Q Shift NOTE FOLLOW UP SCH (10:25)
[2024-04-06] MEDS: cefTRIAXone 1 gm/50 mL D5W 1 GM/50 ML BAG IV SCH (20:39)
[2024-04-07] MEDS: HYDROcodone/Acetamin 10/325 TAB (NF) PO PRN (02:03)
[2024-04-07 06:01] LABS: ABS Basophils 0.1 10^3/uL (0.0-0.1); ABS Lymphocytes 0.8 10^3/uL (1.0-4.8); ABS Neutrophils 9.9 10^3/uL (1.5-7.6); ABS Nucleated RBC 0.01 10^3/ul; Eosinophil % 0.4 %; Hematocrit 34.2 % (38-53); Hemoglobin 11.1 g/dL (13.2-16.3); Lymphocyte % 7.2 %; Mean Corpuscular Hemoglobin 26.8 pg (27-33); Mean Corpuscular Hgb Conc 32.6 g/dL (31-36); Mean Corpuscular Volume 82.3 fL (80-97); Mean Platelet Volume 7.8 fL (7.5-11.2); Nucleated Red Blood Cells % 0.1 %/100WBC (0.0-0.8); Platelet Count 194 10^3/uL (150-450); Red Blood Count 4.15 10^6/uL (4.06-5.63); Red Cell Distribution Width 15.9 % (12-17); White Blood Count 11.8 10^3/uL (3.6-10.2)
[2024-04-07 06:53] LABS: Calcium 8.6 mg/dL (8.6-10.3); Creatinine, Serum 1.15 mg/dL (0.67-1.17); Potassium 3.5 mmol/L (3.5-5.0)
[2024-04-07] MEDS: Senna TAB 8.6 mg TAB PO PRN (20:42)
[2024-04-08 06:59] LABS: Calcium 8.5 mg/dL (8.6-10.3); Creatinine, Serum 1.02 mg/dL (0.67-1.17); Potassium 3.6 mmol/L (3.5-5.0); eGFR CKD-EPI 76.2 (>60)
[2024-04-08 07:06] LABS: ABS Eosinophils 0.1 10^3/uL (0.0-0.5); ABS Lymphocytes 0.7 10^3/uL (1.0-4.8); ABS Monocytes 0.8 10^3/uL (0.0-1.1); ABS Neutrophils 7.9 10^3/uL (1.5-7.6); ABS Nucleated RBC 0.01 10^3/ul; Eosinophil % 1.1 %; Hematocrit 36.9 % (38-53); Hemoglobin 11.8 g/dL (13.2-16.3); Lymphocyte % 7.1 %; Mean Corpuscular Hemoglobin 27.1 pg (27-33); Mean Corpuscular Volume 84.7 fL (80-97); Mean Platelet Volume 8.3 fL (7.5-11.2); Nucleated Red Blood Cells % 0.1 %/100WBC (0.0-0.8); Platelet Count 162 10^3/uL (150-450); Red Blood Count 4.36 10^6/uL (4.06-5.63); Red Cell Distribution Width 16.3 % (12-17); White Blood Count 9.5 10^3/uL (3.6-10.2)
[2024-04-09 06:16] LABS: ABS Eosinophils 0.1 10^3/uL (0.0-0.5); ABS Lymphocytes 0.6 10^3/uL (1.0-4.8); ABS Monocytes 0.8 10^3/uL (0.0-1.1); Hemoglobin 10.7 g/dL (13.2-16.3); Mean Corpuscular Hemoglobin 26.3 pg (27-33); Mean Corpuscular Hgb Conc 31.5 g/dL (31-36); Mean Corpuscular Volume 83.2 fL (80-97); Mean Platelet Volume 7.9 fL (7.5-11.2); Platelet Count 202 10^3/uL (150-450); Red Blood Count 4.08 10^6/uL (4.06-5.63); Red Cell Distribution Width 15.9 % (12-17); White Blood Count 7.4 10^3/uL (3.6-10.2)
[2024-04-09 06:35] LABS: Calcium 8.6 mg/dL (8.6-10.3); Creatinine, Serum 1.08 mg/dL (0.67-1.17); Magnesium 2.2 mg/dL (1.9-2.7); Potassium 3.9 mmol/L (3.5-5.0); eGFR CKD-EPI 71.1 (>60)
[2024-04-09] MEDS: Albuterol HFA INHALER 8 gm MDI INH PRN (07:42)
[2024-04-09] MEDS ORDERED: Albuterol/Ipratropium NEB.SOL (2.5/0.5 MG) 3 ML NEB.SOLN INH PRN (07:56)
[2024-04-09] MEDS: Polyethylene Glycol 3350 17 GM PACKET PO PRN (08:23)
[2024-04-09] MEDS: methylPREDNISolone SOD SUCC 40 mg/ml 1 ml VIAL IV SCH (08:47)
[2024-04-09] MEDS: Furosemide 40 mg/4 ml IV VIAL IV ONE (11:27)
[2024-04-09] MEDS: Albuterol/Ipratropium NEB.SOL (2.5/0.5 MG) 3 ML NEB.SOLN INH PRN (12:40)
[2024-04-09] MEDS ORDERED: Vancomycin 1,000 MG in NS 0.9% 250 ml 250 ML IVPB ONE (15:12)
[2024-04-09] MEDS ORDERED: Vancomycin per Pharmacy 1 EA NOTE FOLLOW UP SCH (16:00)
[2024-04-09] MEDS: Vancomycin 1,500 MG in NS 0.9% 250 ml 250 ML IVPB ONE (17:38)
[2024-04-09] MEDS: Piperacillin/Tazobac 3.375 BAG 3.375 GM/100 ML BAG IV SCH (18:22)
[2024-04-09] MEDS ORDERED: ZOSYN 3.375 GM x ONE DOSE over 30 miuntes IV (18:30)
[2024-04-09] MEDS ORDERED: Zosyn per Pharmacy NOTE FOLLOW UP PRN (19:37)
[2024-04-09] MEDS: Acetaminop/Codeine 300mg/30mg TAB PO PRN (19:37)
[2024-04-09] MEDS: ZOSYN 3.375 GM x ONE DOSE over 30 miuntes IV (21:54)
[2024-04-10] MEDS ORDERED: ZOSYN 3.375 GM Q8H per EXTENDED INFUSION IV SCH (02:00)
[2024-04-10] MEDS: Piperacillin/Tazobac 3.375 BAG 3.375 GM/100 ML BAG IV SCH (02:10)
[2024-04-10 06:30] LABS: Creatinine, Serum 1.19 mg/dL (0.67-1.17); eGFR CKD-EPI 63.3 (>60)
[2024-04-10] MEDS: Vancomycin 1000 MG in NS 0.9% 250 ML IVPB SCH (06:32)
[2024-04-10] MEDS: Methylnaltrexone 150 MG TAB PO SCH (17:14)
[2024-04-10] MEDS: Methylnaltrexone SQ (NF) 12 MG/0.6 ML VIAL SUBCUT SCH (18:08)
[2024-04-10] MEDS: Iodixanol (CONTRAST) 320 MG/ML 100 ML SDV IV ONE (19:12)
[2024-04-10] MEDS: Polyethylene Glycol 3350 17 GM PACKET PO SCH (21:33)
[2024-04-11 06:10] LABS: ABS Lymphocytes 0.7 10^3/uL (1.0-4.8); ABS Monocytes 0.5 10^3/uL (0.0-1.1); ABS Neutrophils 6.2 10^3/uL (1.5-7.6); Hematocrit 35.2 % (38-53); Hemoglobin 11.3 g/dL (13.2-16.3); Lymphocyte % 9.4 %; Mean Corpuscular Hemoglobin 26.5 pg (27-33); Mean Corpuscular Hgb Conc 32.2 g/dL (31-36); Mean Corpuscular Volume 82.5 fL (80-97); Nucleated Red Blood Cells % 0.1 %/100WBC (0.0-0.8); Platelet Count 225 10^3/uL (150-450); Red Blood Count 4.27 10^6/uL (4.06-5.63); Red Cell Distribution Width 15.8 % (12-17); White Blood Count 7.3 10^3/uL (3.6-10.2)
[2024-04-11 06:33] LABS: Calcium 8.6 mg/dL (8.6-10.3); Creatinine, Serum 1.05 mg/dL (0.67-1.17); eGFR CKD-EPI 73.6 (>60)
[2024-04-11 06:50] LABS: Creatinine, Serum 1.1 mg/dL (0.67-1.17); Vancomycin Trough 13.9 mcg/mL; eGFR CKD-EPI 69.6 (>60)
[2024-04-11] MEDS: Vancomycin Trough Check NOTE FOLLOW UP ONE (16:00)
[2024-04-12 06:28] LABS: Calcium 8.6 mg/dL (8.6-10.3); Creatinine, Serum 1.04 mg/dL (0.67-1.17); Magnesium 1.9 mg/dL (1.9-2.7); Potassium 4.4 mmol/L (3.5-5.0); eGFR CKD-EPI 74.4 (>60)
[2024-04-12 06:31] LABS: ABS Lymphocytes 0.7 10^3/uL (1.0-4.8); ABS Monocytes 0.3 10^3/uL (0.0-1.1); ABS Neutrophils 6.6 10^3/uL (1.5-7.6); ABS Nucleated RBC 0.01 10^3/ul; Eosinophil % 0.1 %; Hemoglobin 10.9 g/dL (13.2-16.3); Lymphocyte % 9.3 %; Mean Corpuscular Hemoglobin 26.5 pg (27-33); Mean Corpuscular Hgb Conc 31.9 g/dL (31-36); Mean Corpuscular Volume 83.1 fL (80-97); Nucleated Red Blood Cells % 0.1 %/100WBC (0.0-0.8); Platelet Count 210 10^3/uL (150-450); Red Cell Distribution Width 15.9 % (12-17); White Blood Count 7.7 10^3/uL (3.6-10.2)
[2024-04-12] MEDS: Furosemide 40 mg/4 ml IV VIAL IV ONE (11:32)
[2024-04-12] MEDS: methylPREDNISolone SOD SUCC 40 mg/ml 1 ml VIAL IV SCH (17:01)
[2024-04-13] MEDS ORDERED: Vancomycin Trough Check NOTE FOLLOW UP ONE (05:30)
[2024-04-13 06:49] LABS: ABS Lymphocytes 1.2 10^3/uL (1.0-4.8); ABS Monocytes 0.8 10^3/uL (0.0-1.1); ABS Neutrophils 5.5 10^3/uL (1.5-7.6); Eosinophil % 0.4 %; Hematocrit 33.8 % (38-53); Lymphocyte % 15.8 %; Mean Corpuscular Hemoglobin 26.8 pg (27-33); Mean Corpuscular Hgb Conc 32.7 g/dL (31-36); Mean Corpuscular Volume 82.1 fL (80-97); Mean Platelet Volume 7.5 fL (7.5-11.2); Nucleated Red Blood Cells % 0.1 %/100WBC (0.0-0.8); Platelet Count 247 10^3/uL (150-450); Red Blood Count 4.12 10^6/uL (4.06-5.63); Red Cell Distribution Width 15.6 % (12-17); White Blood Count 7.6 10^3/uL (3.6-10.2)
[2024-04-13 07:47] LABS: Calcium 8.4 mg/dL (8.6-10.3); Creatinine, Serum 1.22 mg/dL (0.67-1.17); Magnesium 1.9 mg/dL (1.9-2.7); Potassium 3.4 mmol/L (3.5-5.0); eGFR CKD-EPI 61.4 (>60)
[2024-04-13 08:01] LABS: Creatinine, Serum 1.21 mg/dL (0.67-1.17); eGFR CKD-EPI 62.1 (>60)
[2024-04-13] MEDS: KCL 20 MEQ/100 ML IVPREMIX 20 MEQ/100 ML BAG IV SCH (08:39)
[2024-04-13] MEDS ORDERED: Sulfur Hexaflouride MICROSPHR 25 MG VIAL ONE (09:48)
[2024-04-13] MEDS: Sulfur Hexaflouride MICROSPHR 25 MG VIAL IV PRN (09:52)
[2024-04-13] MEDS: Furosemide 40 mg/4 ml IV VIAL IV ONE (10:31)
[2024-04-13 18:12] LABS: Ferritin 60.6 ng/mL (24-336)
[2024-04-13] MEDS: Acetaminop/Codeine 300mg/30mg TAB PO PRN (20:13)
[2024-04-14 05:09] VITALS: BP 158/83
[2024-04-14] MEDS: Potassium EFFERVES 25 meq TAB PO ONE (08:44)
[2024-04-14 09:29] LABS: Rapid COVID-19 Molecular Undetected (Undetected)
== END 2024-04-14 10:30 | DRG 189 ==
LOC: ED 14:07 → SUATTDRO 21:14 → INTOOBSV 21:14 → EDHOLD 21:14 → MEDTELE 23:17 → SUATTDRO 04-09 08:00
PROVIDERS: ADMIT Internal Medicine; ATTEND Student in an Organized Health Care Education/Training Program